=== PATIENT | male | born 1995 | race Caucasian/White ===

== ENCOUNTER 2017-01-05 11:29 | Inpatient (IN) | payer OTHER ==
[~2017-01-05] VITALS: Ht 165.1 cm; Wt 55.5 kg
--- NOTE | ~2017-01-05 | CON ---
[place], [place] REPORT OF CONSULTATION NAME: IOANA SALAZAR UNIT #: [id number] ROOM: 516 DOCTOR: YESENIA GO ED.D) BIRTHDATE: [birth year] DOS: 01/06/2017 HISTORY OF PRESENT ILLNESS: The patient is a 21-year-old male referred by the hospitalist for psychological evaluation. This patient is presently in [facility]. Patient here at [facility] and he is on 5th floor at [facility]. He states he is single and has no children. His parents are both living and he has 1 brother. He does have a high school education, but has no job. He also does not have a family physician. His medical history is pertinent for opiate addiction benzodiazepine addiction, depression, PTSD, asthma, ADHD. His medications included Xanax and Adderall. He states he had become addicted to benzodiazepines along with painkillers. He states that his psychiatrist is Dr. Bernard and he was following with Dr. Bernard but Dr. Bernard did discontinue this patient's benzodiazepines and pain medications along with his ADHD medications and Celexa. The patient states he is now here for treatment of addiction. He is awake, alert and oriented in all 3 spheres and adamantly denies any suicidal ideation or plan. He does not appear to be having any active hallucinations. It has been suggested to him in the past that he does not have bipolar disorder, but he believes he just has ADHD. He will need further psychological evaluation regarding his psychological issues with the present ____ has issues with opiate dependence. This patient requested that he needed longer term treatment and is willing to follow up with the recommendations of the [facility] staff. He also will need outpatient treatment and I suggested to the patient that the [facility] staff will arrange his followup. He states he comes from [facility] for his followups with Dr. Bernard and states he wants to find a provider closer to his home. I explained that it will be very likely he will find it by prescribing opiates or benzodiazepines in the future because of the fact that he admits to addiction to those medications. He has been quite impulsive and acting quite inappropriately on the unit. DIAGNOSES: 1. Opiate dependence. 2. Benzodiazepine dependence. 3. Borderline personality disorder. RECOMMENDATIONS: The patient should follow up outpatient once he is discharged with mental health providers along with substance abuse providers. [place], [place] REPORT OF CONSULTATION NAME: IOANA SALAZAR UNIT #: [id number] ROOM: 516 DOCTOR: YESENIA GO ED.D) BIRTHDATE: [birth year] YESENIA GO ED.D CM:CONSTR:REPORT OF CONSULTATION 1329 01/07/17 [id number] interface
[2017-01-05] MEDS ORDERED: ZOLOFT100 MG PO (12:34)
[2017-01-05 13:03] LABS: BASO # 0.1 10*3/uL (0.0-0.1); BASO % 0.7 % (0.0-1.0); EOS # 0.3 10*3/uL (0.0-0.4); EOS % 3.1 % (1.0-4.0); HEMATOCRIT 43.7 % (42.0-52.0); HEMOGLOBIN 14.7 g/dl (14.0-18.0); LYMPH # 2.7 10*3/uL (1.3-4.4); MEAN CELL VOLUME 83.9 fl (80.0-94.0); MEAN CORPUSCULAR HGB 28.2 pg (27.0-31.0); MEAN CORPUSCULAR HGB CONC 33.6 g/dl (33.0-37.0); MEAN PLATELET VOLUME 10.3 fl (9.6-12.3); MONO # 0.6 10*3/uL (0.1-1.0); MONO % 7.5 % (3.0-9.0); NEUT # 4.4 10*3/uL (2.3-7.9); NEUT % 54.5 % (47.0-73.0); PLATELET COUNT AUTOMATED 359 10*3/uL (130-400); RED BLOOD COUNT 5.21 10*6/uL (4.50-5.90); RED CELL DISTRI WIDTH 13.2 % (0-14.5)
[2017-01-05 13:04] LABS: PROTHROMBIN TIME 10.6 SECONDS (9.0-12.4)
[2017-01-05 13:09] LABS: ALKALINE PHOSPHATASE 84 U/L (45-117); BILIRUBIN, TOTAL 0.1 mg/dl (0.2-1.0); BUN 18 mg/dl (7-24); CARBON DIOXIDE 30 mmol/L (21-32); CHLORIDE 105 mmol/L (98-107); EST GLOM FILT AFRICAN AMERICAN > 60 ml/min; GLUCOSE 75 mg/dL (65-99); POTASSIUM 4.3 mmol/L (3.5-5.1); SGOT/AST 14 IU/L (3-35); SGPT/ALT 17 U/L (12-78); SODIUM 141 mmol/L (136-145); TOTAL PROTEIN 7.4 gm/dL (6.4-8.2)
[2017-01-05 14:31] LABS: BILIRUBIN NEGATIVE (NEGATIVE); BLOOD NEGATIVE (NEGATIVE); CLARITY CLEAR (CLEAR); COLOR YELLOW (YELLOW); GLUCOSE NEGATIVE (NEGATIVE); KETONE NEGATIVE (NEGATIVE); LEUKO ESTERASE NEGATIVE (NEGATIVE); NITRITE NEGATIVE (NEGATIVE); PH 5.5 (5.0-9.0); PROTEIN NEGATIVE (NEGATIVE); UROBILINOGEN 0.2 E.U./dl (0.2-1.0)
[2017-01-05 14:41] LABS: URINE AMPHETAMINES < 1000 (1000ng/ml); URINE BARBITURATES < 200 (200ng/ml); URINE COCAINE < 300 (300ng/ml)
[2017-01-05 14:45] LABS: BACTERIA TRACE; WBC 0-2 wbc/hpf (0-5)
[2017-01-05 14:46] LABS: URINE REFLEX COMMENT NO (NO)
[2017-01-05 16:00] VITALS: BP 119/72
[2017-01-05 20:00] VITALS: BP 103/66
[2017-01-06] VITALS: BP 120/67
[2017-01-06 04:00] VITALS: BP 112/62
[2017-01-06 08:00] VITALS: BP 110/56
[2017-01-06] MEDS ORDERED: VENTOLIN H0.09 MG/AC INH (08:03)
[2017-01-06 12:00] VITALS: BP 102/72
[2017-01-06 16:00] VITALS: BP 119/61
[2017-01-06 20:00] VITALS: BP 98/61
[2017-01-07] VITALS: BP 131/88
[2017-01-07 06:12] LABS: HEPATITIS C VIRUS ANTIBODY <0.1 s/co (0.0-0.9)
[2017-01-07 07:07] LABS: HIV 1+2 AB + HIV1 P24 AG Non Reactive (Non Reactive)
[2017-01-07 08:00] VITALS: BP 106/58
[2017-01-07 12:00] VITALS: BP 114/66
[2017-01-07 16:00] VITALS: BP 120/70
[2017-01-07 20:00] VITALS: BP 107/55
[2017-01-08] VITALS: BP 93/51
[2017-01-08 07:07] LABS: BASO # 0.1 10*3/uL (0.0-0.1); BASO % 0.8 % (0.0-1.0); EOS # 0.2 10*3/uL (0.0-0.4); EOS % 3.5 % (1.0-4.0); HEMOGLOBIN 13.3 g/dl (14.0-18.0); LYMPH # 3.4 10*3/uL (1.3-4.4); LYMPH % 54.4 % (27.0-41.0); MEAN CELL VOLUME 86.5 fl (80.0-94.0); MEAN CORPUSCULAR HGB 28.1 pg (27.0-31.0); MEAN CORPUSCULAR HGB CONC 32.4 g/dl (33.0-37.0); MEAN PLATELET VOLUME 10.1 fl (9.6-12.3); MONO # 0.5 10*3/uL (0.1-1.0); MONO % 7.9 % (3.0-9.0); NEUT # 2.1 10*3/uL (2.3-7.9); NEUT % 33.2 % (47.0-73.0); PLATELET COUNT AUTOMATED 306 10*3/uL (130-400); RED BLOOD COUNT 4.74 10*6/uL (4.50-5.90); RED CELL DISTRI WIDTH 13.6 % (0-14.5); WHITE BLOOD COUNT 6.3 10*3/uL (4.8-10.8)
[2017-01-08 07:38] LABS: EST GLOM FILT AFRICAN AMERICAN > 60 ml/min
[2017-01-08 08:00] VITALS: BP 107/45
[2017-01-08 12:00] VITALS: BP 122/81
[2017-01-08] MEDS ORDERED: THERA TABS1 TAB PO (12:47)
[2017-01-08] MEDS ORDERED: METHOCARBAMOL750 M1 PO (12:47)
[2017-01-08] MEDS ORDERED: CARBIDOPA/LEVOD1 TA1 PO (12:47)
[2017-01-08] MEDS ORDERED: NATURE'S BLEND F1 MG PO (12:47)
[2017-01-08] MEDS ORDERED: VITAMIN B-11 TAB PO (12:47)
[2017-01-08] MEDS ORDERED: ZOLOFT100 MG PO (12:57)
[2017-01-08] MEDS ORDERED: CHLORDIAZEPOXID25 MG PO (12:57)
[2017-01-08] MEDS ORDERED: DULE1ARO1 INH (12:57)
== END 2017-01-08 13:58 | disposition home or self-care (01) | DRG 897 ==
LOC: 5E 11:29
PROVIDERS: Internal Medicine
DX: F11.23 Opioid dependence with withdrawal (principal); F13.20 Sedative, hypnotic or anxiolytic dependence, uncomplicated; F15.10 Other stimulant abuse, uncomplicated; F43.10 Post-traumatic stress disorder, unspecified; F41.0 Panic disorder [episodic paroxysmal anxiety]; F60.3 Borderline personality disorder; J45.909 Unspecified asthma, uncomplicated; F32.9 Major depressive disorder, single episode, unspecified; F12.10 Cannabis abuse, uncomplicated; Z71.6 Tobacco abuse counseling; Z72.89 Other problems related to lifestyle; Z72.0 Tobacco use; Z82.5 Family history of asthma and other chronic lower respiratory diseases; Z79.899 Other long term (current) drug therapy; Z88.8 Allergy status to other drugs, medicaments and biological substances